=== PATIENT | male | born 1995 | race Caucasian/White ===

== ENCOUNTER 2017-05-01 20:56 | Emergency (ER) | payer BC, OTHER ==
[2017-05-01 21:02] VITALS: BP 137/52
--- NOTE | 2017-05-01 21:20 | UC ---
Headache HPI - HPI Summary HPI Summary: 21 yo WM c/o worsening PERALTA and decreased concentration x 3-4 days after bumping the vertex of his head against the wall while of his bedroom while laying in bed and moving himself upwards towards his pillow. Has been taking ibuprofen for the achiness on top of his head but c/o harder time "concentrating" at night while at home back from work, and becoming more noticeable. Denies LOC, changes in vision or n/v. - History Of Current Complaint Chief Complaint: UCHeadInjury Stated Complaint: HEAD COMPLAINT Time Seen by Provider: 05/01/17 21:06 Hx Obtained From: Patient Onset/Duration: Sudden Onset, Gradual Onset Timing: Constant, Intermittent, Lasting: Character: Dull, Throbbing Location of Headache: Frontal, Other: - vertex Allevating Factor(s): Nothing Associated Signs And Symptoms: Negative: Dizziness, Nausea, Vomiting, Neck Pain , Neck Stiffness, Decreased LOC - lack of concentration - Allergies/Home Medications Allergies/Adverse Reactions: Allergies Allergy/AdvReac Type Severity Reaction Status Date / Time Penicillins Allergy Severe Hives Verified 05/01/17 20:57 PMH/Surg Hx/FS Hx/Imm Hx - Surgical History Surgical History: Yes Surgery Procedure, Year, and Place: TONSILLECTOMY - Family History Known Family History: Positive: Other - noncontibutory - Social History Alcohol Use: Occasionally Substance Use Type: None Smoking Status (MU): Never Smoked Tobacco Review of Systems Constitutional: Negative Skin: Negative Eyes: Negative ENT: Negative Respiratory: Negative Cardiovascular: Negative Gastrointestinal: Negative Genitourinary: Negative Motor: Negative Neurovascular: Negative Musculoskeletal: Negative Neurological: Headache - after bumping head against wall Psychological: Negative All Other Systems Reviewed And Are Negative: Yes Physical Exam Triage Information Reviewed: Yes Appearance: Well-Appearing, No Pain Distress Vital Signs: Initial Vital Signs Temp 36.6 C 05/01/17 21:00 Pulse 72 05/01/17 21:00 Resp 16 05/01/17 21:00 BP 137/52 05/01/17 21:00 Pulse Ox 100 05/01/17 21:00 Vital Signs Reviewed: Yes Eye Exam: Normal ENT Exam: Normal ENT: Positive: Normal ENT inspection, Other - PERRL, EOMI Dental Exam: Normal Neck exam: Normal Neck: Positive: Nontender Respiratory Exam: Normal Respiratory: Positive: Chest non-tender, Lungs clear Cardiovascular Exam: Normal Cardiovascular: Positive: RRR Abdominal Exam: Normal Abdomen Description: Positive: Nontender Musculoskeletal Exam: Normal Neurological Exam: Normal Psychological Exam: Normal Skin Exam: Normal - Additional Comments Mild TTP on the vertex head, NO discrete swelling /mass noted on exam, no abrasion of skin breakdown Headache Course/Dx - Course Course Of Treatment: CT head neg for ICh or hematoma, pt prob does suffer from mild degree of post-concussion syndrome and advised to monitor for worsening sx , pain control to be continued with OTC analgesics PRN. - Differential Dx/Diagnosis Provider Diagnoses: Headache Discharge - Discharge Plan Condition: Stable Disposition: HOME Patient Education Materials: Post Concussion Syndrome (ED) Referrals: No Primary Care Phys,NOPCP [Primary Care Provider] - Additional Instructions: as tolerated
--- NOTE | 2017-05-01 21:28 | RAD ---
INDICATION: Intracranial injury COMPARISON: December 30, 2015 TECHNIQUE: Noncontrast axial source images were acquired from the skull base to the vertex. FINDINGS: Ventricles/sulci: The ventricles and cisterns are normal in size and configuration for age. Brain parenchyma: There is no focal parenchymal finding, evidence of intracranial mass, or intracranial mass effect. Intracranial hemorrhage:None. Extra-axial spaces: There are no abnormal extra axial fluid collections or evidence of extra-axial mass. Calvarium: There is no calvarial fracture or other calvarial abnormality. Scalp: There is no evidence of scalp or extracalvarial soft tissue abnormality. Paranasal sinuses/mastoid: The paranasal sinuses and mastoid air cells are clear. Other: None. IMPRESSION: NEGATIVE EXAMINATION
== END 2017-05-01 21:55 | disposition home or self-care (01) ==
LOC: UCEAST 20:56
DX: R51 Headache (principal); Z88.0 Allergy status to penicillin
CPT/HCPCS: 70450; 99211; G0463